=== PATIENT | male | born 1945 | race Caucasian/White ===

== ENCOUNTER 2016-12-20 20:46 | Emergency (ER) | payer MEDICARE, BC ==
--- NOTE | 2016-12-20 21:09 | EDM.PDOC ---
ED HPI GENERAL MEDICAL PROBLEM - General Chief Complaint: ENT Problem Stated Complaint: EPISTAXIS Time Seen by Provider: 12/20/16 21:04 Source of Information: Reports: Patient History Limitations: Reports: No Limitations - History of Present Illness INITIAL COMMENTS - FREE TEXT/NARRATIVE: This is a 71-year-old gentleman who returns one hour post discharge for continued left nare bleeding. States he bent over to pet cat and nose started to bleed again. Put light pressure and left packing in place, but still had some oozing. When patient presented to the ER this time bleeding had already resolved. Onset: Today Duration: Minutes: Severity: Mild Improves with: Reports: None Worsens with: Reports: None Associated Symptoms: Reports: No Other Symptoms - Related Data Allergies Allergy/AdvReac Type Severity Reaction Status Date / Time ezetimibe [From Zetia] Allergy Unknown Nausea and Verified 08/27/15 16:52 Vomiting diazepam [From Valium] Allergy Confusion Verified 08/27/15 16:52 Home Meds: Home Meds Ibuprofen [Motrin] 800 mg PO Q8H PRN 01/30/15 [History] predniSONE [Prednisone] 15 mg PO Q24H 08/27/15 [History] Levothyroxine 112 mcg PO ASDIRECTED@0700 tablet 08/29/15 [Rx] Calcium Carb & Citrate/Vit D3 [Calcium + D3 ER Tablet] 1 tab PO DAILY 12/20/16 [ History] Cholecalciferol (Vitamin D3) [Vitamin D] 1 tab PO DAILY 12/20/16 [History] Gabapentin [Neurontin] 300 mg PO DAILY PRN 12/20/16 [History] Liothyronine Sodium 5 mcg PO DAILY 12/20/16 [History] Past Medical History HEENT History: Reports: Hard of Hearing, Impaired Vision Gastrointestinal History: Reports: Chronic Diarrhea, GERD Musculoskeletal History: Reports: Arthritis, RA Other Musculoskeletal History: pmr Neurological History: Reports: Head Trauma Endocrine/Metabolic History: Reports: Hypothyroidism - Infectious Disease History Infectious Disease History: Reports: Chicken Pox, Measles, Mumps Other Infectious Disease History: [place] - Past Surgical History Respiratory Surgical History: Reports: Other (See Below) GI Surgical History: Reports: Cholecystectomy, Hernia, Inguinal, Juan Carlos Fundoplication Neurological Surgical History: Reports: C-Spine, Lumbar Spine Social & Family History - Family History HEENT: Reports: Cataract Other HEENT Family History: Father had cataracts. Cardiac: Reports: Other (See Below) Other Cardiac Family History: Aunts and uncles have heart problems. Oncologic: Reports: Other (See Below) Other Oncologic Family History: Grandfather had cancer (unknown) - Tobacco Use Smoking Status *Q: Former Smoker Years of Tobacco use: 11 Packs/Tins Daily: 1 Used Tobacco, but Quit: Yes Month Tobacco Last Used: June 1975 - Alcohol Use Number of Drinks Per Day: 1 - Recreational Drug Use Recreational Drug Use: No ED ROS ENT - Review of Systems Review Of Systems: ROS reveals no pertinent complaints other than HPI. Constitutional: Reports: No Symptoms HEENT: Reports: Nosebleed Respiratory: Reports: No Symptoms Cardiovascular: Reports: No Symptoms Endocrine: Reports: No Symptoms GI/Abdominal: Reports: No Symptoms : Reports: No Symptoms Musculoskeletal: Reports: No Symptoms Skin: Reports: No Symptoms Neurological: Reports: No Symptoms Psychiatric: Reports: No Symptoms Hematologic/Lymphatic: Reports: No Symptoms Immunologic: Reports: No Symptoms ED EXAM, ENT - Physical Exam Exam: See Below Exam Limited By: No Limitations General Appearance: Alert, WD/WN, No Apparent Distress Nose: Dried Blood. No: Active Bleeding Mouth/Throat: Normal Inspection, Normal Oropharynx Respiratory/Chest: No Respiratory Distress Neurological: Alert, Oriented, Normal Cognition Psychiatric: Normal Affect, Normal Mood Skin: Warm, Dry, Intact, Normal Color, No Rash Course - Re-Assessments/Exams Free Text/Narrative Re-Assessment/Exam: 12/20/16 21:07 Patient afebrile, nontoxic appearing. Vital signs stable. 4.5 anterior Rhino Rocket placed in the left nare. Balloon inflated and maintained. Patient tolerated procedure well. Will have patient follow-up at [facility] tomorrow. Departure - Departure Time of Disposition: 21:10 Disposition: Home, Self-Care 01 Condition: Good Clinical Impression: Epistaxis - Discharge Information Instructions: Nosebleed, [id number] Referrals: Gill Carranza MD [Primary Care Provider] - Additional Instructions: FOLLOW UP AT [facility] TOMORROW FOR RHINO REMOVAL - Assessment/Plan Assessment:: EPISTAXIS Plan: F/U AT [facility]
[2016-12-20 21:25] VITALS: BP 135/90
== END 2016-12-20 21:20 | disposition home or self-care (01) ==
LOC: KA.ED 20:46
DX: R04.0 Epistaxis (principal); E03.9 Hypothyroidism, unspecified; Z87.891 Personal history of nicotine dependence; Z79.899 Other long term (current) drug therapy; Z88.8 Allergy status to other drugs, medicaments and biological substances
CPT/HCPCS: 30901; 99283

== ENCOUNTER 2017-06-20 12:22 | Day surgery (SDC) | payer MEDICARE, BC ==
[2017-06-20] MEDS ORDERED: Sodium Chloride 0.9% 5 ML Syringe FLUSH PRN (12:45)
[2017-06-20] MEDS ORDERED: Gatifloxacin 0.5% Ophth Soln 2.5 ML Bot EYERT SCH (12:45)
[2017-06-20] MEDS ORDERED: Lactated Ringers 1,000 ML IV SCH (12:45)
[2017-06-20] MEDS: Phenylephrine 10% Ophth Soln 5 ML Bot EYERT SCH ×3 (12:53→13:24)
[2017-06-20] MEDS: Cyclopentolate 1% Opth Soln 2 ML Bottle EYERT SCH ×3 (13:03→13:37)
[2017-06-20] MEDS ORDERED: Ketorolac 30 MG/ML SDV ONE (13:44)
[2017-06-20] MEDS ORDERED: Ketorolac 30 MG/ML SDV IVPUSH ONE (14:15)
[2017-06-20] MEDS ORDERED: Balanced Salt Solution Ophth Irrig 15 ML Bottle EYERT ONE (14:35)
[2017-06-20] MEDS ORDERED: Balanced Salt Solution Plus Ophth Irrig 500 ML Bottle IOCULAR ONE (14:35)
[2017-06-20] MEDS ORDERED: Water For Irrigation,Sterile 1,500 ML Container IRR ONE (14:35)
[2017-06-20] MEDS ORDERED: EPINEPHrine 1 MG/ML SDV ONE (14:36)
[2017-06-20] MEDS ORDERED: Dexamethasone/Neomycin/Polymyxin B Ophth Oint 3.5 GM Tube EYERT ONE (14:36)
[2017-06-20] MEDS ORDERED: Carbachol 0.01% Intraocular 1.5 ML Vial EYERT ONE (14:36)
[2017-06-20] MEDS ORDERED: Lidocaine 2% with EPINEPHrine 1:100,000 20 ML MDV INJECT ONE (14:37)
[2017-06-20] MEDS ORDERED: Lidocaine 1% 10 ML MDV INJECT ONE (14:37)
[2017-06-20] MEDS ORDERED: Hyaluronate Sodium 1% 0.85 ML Syringe IOCULAR ONE (14:37)
[2017-06-20] MEDS ORDERED: Tetracaine HCl/PF 0.5% 4 ML Bottle EYEBOTH ONE (14:38)
[2017-06-20 14:50] VITALS: BP 144/86
--- NOTE | 2017-06-20 22:16 | OR ---
DATE OF SURGERY: 06/20/2017 SURGEON: Michael Klein MD PREOPERATIVE DIAGNOSIS: Cataract, right eye. POSTOPERATIVE DIAGNOSIS: Same. OPERATION PERFORMED: Phacoemulsification with posterior chamber lens insertion, right eye. HISTORY: The patient has noted an increasing amount of difficulty seeing at near, but also seeing at distance with his right eye. The vision for the right eye is 20/50. The right lens has a 2+ to 3+ nuclear sclerosis and a 3+ posterior subcapsular cataract. 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 FINDINGS: The patient was taken to the operating room where appropriate anesthesia, sedation and monitoring were provided. A retrobulbar block was given on the right side. The eye was massaged and was found to be appropriately soft. The eye and eyelids were then prepped and draped in the usual sterile manner. A lid speculum was placed. A micro sharp blade was used to enter the anterior chamber inside the limbus superior-temporally. Xylocaine was irrigated into the eye at this site. Healon was irrigated into the eye through this site. Then using a 2.85 mm corneal blade an entry was made into the anterior chamber just inside the limbus temporally. Healon was again irrigated into the eye. Then using a cystitome, the anterior capsulorrhexis was created. The lens nucleus was hydrodissected using a 27 gauge cannula and balanced salt solution. The phacoemulsification unit was introduced through the temporal site and the Fernando spatula through the superior temporal site. In so doing, the lens nucleus was phacoemulsified. The cortical fragments of the lens were removed using the irrigation aspiration unit. The posterior capsule was polished. Healon was irrigated into the eye. The posterior chamber lens was inserted and rotated into position inside the capsular bag. The Healon was irrigated out of the eye. Miostat was irrigated into the eye and the pupil rounded nicely. A single interrupted 10-0 Nylon suture was placed through the temporal corneal incision site. Balanced salt solution was irrigated into the eye. The wound was tested and found to be tight. Maxitrol ointment was placed into the patient's right eye. The eyelids were closed and an eye patch and lucas shield were placed. The patient left the operating room in good condition. /[id number]/MODL
== END 2017-06-20 15:19 | disposition home or self-care (01) ==
LOC: KA.SDS 12:22
PROVIDERS: ATTEND Ophthalmology
DX: H25.811 Combined forms of age-related cataract, right eye (principal); H90.5 Unspecified sensorineural hearing loss; K21.9 Gastro-esophageal reflux disease without esophagitis; E03.9 Hypothyroidism, unspecified; M19.90 Unspecified osteoarthritis, unspecified site; G62.9 Polyneuropathy, unspecified; E55.9 Vitamin D deficiency, unspecified; E78.00 Pure hypercholesterolemia, unspecified; M35.3 Polymyalgia rheumatica; Z79.899 Other long term (current) drug therapy; Z88.1 Allergy status to other antibiotic agents
CPT/HCPCS: A9270-GY; J0171; J1885; J7120

== ENCOUNTER 2019-09-14 13:06 | Emergency (ER) | payer MEDICARE, BC ==
[2019-09-14 13:13] VITALS: BP 162/100; PULSE 103
[2019-09-14] MEDS: Lidocaine 1% 20 ML MDV INJECT ONE (13:20)
[2019-09-14] MEDS: Bacitracin/Neomycin/Polymyxin B Oint 0.9 GM U/D Packet TOP ONE (13:28)
[2019-09-14] MEDS: Lidocaine 1% 20 ML MDV ONE (13:30)
--- NOTE | 2019-09-14 13:32 | EDM.PDOC ---
ED HPI GENERAL MEDICAL PROBLEM - General Chief Complaint: Upper Extremity Injury/Pain Stated Complaint: FISHHOOK TO RIGHT ARM Time Seen by Provider: 09/14/19 13:25 Source of Information: Reports: Patient History Limitations: Reports: No Limitations - History of Present Illness INITIAL COMMENTS - FREE TEXT/NARRATIVE: Patient is a 74-year-old gentleman who presents to emergency department this afternoon via private vehicle with a complaint of fishhook to right forearm. Patient states that he was fishing just prior to arrival and accidentally hooked right forearm. Denies any other injury. Onset: Sudden Onset Date: 09/14/19 Duration: Hour(s): Location: Reports: Upper Extremity, Right Severity: Mild Improves with: Reports: None Worsens with: Reports: None Context: Reports: Trauma ([place] to right forearm) Associated Symptoms: Reports: No Other Symptoms - Related Data Allergies Allergy/AdvReac Type Severity Reaction Status Date / Time ezetimibe [From Zetia] Allergy Unknown Nausea and Verified 09/14/19 13:13 Vomiting diazepam [From Valium] Allergy Confusion Verified 09/14/19 13:13 doxycycline Allergy Diarrhea Verified 09/14/19 13:13 Home Meds: Home Meds Ibuprofen [Motrin] 800 mg PO DAILY PRN 01/30/15 [History] predniSONE [Prednisone] 12 mg PO DAILY 08/27/15 [History] Calcium Carb, Citrate/Vit D3 [Calcium + D3 ER Tablet] 1 tab PO DAILY 12/20/16 [History] Levothyroxine [Synthroid] 88 mcg PO DAILY 09/14/19 [History] cephALEXin [Keflex] 500 mg PO TID #21 capsule 09/14/19 [Rx] sulfaSALAzine 500 mg PO BID 09/14/19 [History] Past Medical History HEENT History: Reports: Cataract, Hard of Hearing, Impaired Vision Respiratory History: Reports: Pneumothorax Gastrointestinal History: Reports: Chronic Diarrhea, GERD Musculoskeletal History: Reports: Arthritis, RA Other Musculoskeletal History: pmr Neurological History: Reports: Head Trauma Endocrine/Metabolic History: Reports: Hypothyroidism - Infectious Disease History Infectious Disease History: Reports: Chicken Pox, Measles Other Infectious Disease History: [place] - Past Surgical History Head Surgeries/Procedures: Reports: None GI Surgical History: Reports: Cholecystectomy, Hernia, Inguinal, Juan Carlos Fundoplication Neurological Surgical History: Reports: C-Spine, Lumbar Spine Social & Family History - Family History Family Medical History: Noncontributory HEENT: Reports: Cataract Other HEENT Family History: Father had cataracts. Cardiac: Reports: Other (See Below) Other Cardiac Family History: Aunts and uncles have heart problems. Oncologic: Reports: Other (See Below) Other Oncologic Family History: Grandfather had cancer (unknown) - Caffeine Use Caffeine Use: Reports: Coffee, Soda, Tea Review of Systems - Review of Systems Review Of Systems: Comprehensive ROS is negative, except as noted in HPI. Constitutional: Reports: No Symptoms Eyes: Reports: No Symptoms Ears: Reports: No Symptoms Nose: Reports: No Symptoms Mouth/Throat: Reports: No Symptoms Respiratory: Reports: No Symptoms Cardiovascular: Reports: No Symptoms GI/Abdominal: Reports: No Symptoms Genitourinary: Reports: No Symptoms Musculoskeletal: Reports: No Symptoms Skin: Reports: Other ([place] to right midforearm) Neurological: Reports: No Symptoms Psychiatric: Reports: No Symptoms ED EXAM, GENERAL - Physical Exam Exam: See Below Exam Limited By: No Limitations General Appearance: Alert, WD/WN, No Apparent Distress Throat/Mouth: Normal Inspection, Normal Oropharynx, No Airway Compromise Head: Atraumatic, Normocephalic Respiratory/Chest: No Respiratory Distress Extremities: Other ([place] to right midforearm) Neurological: Alert, Oriented, Normal Cognition Psychiatric: Normal Affect, Normal Mood Skin Exam: Warm, Dry, Normal Color, No Rash, Other (As above.-) ED TRAUMA EXTREMITY PROCEDURES - Foreign Body Removal Indication:: [place] embedded in right forearm Performing Doctor:: Rafael Patiño Anesthesia Type: Local Findings:: [place] removed with heme stats. No complications Complications:: No Course - Vital Signs Last Recorded V/S: Last Vital Signs Temp 97.5 F 09/14/19 13:08 Pulse 103 H 09/14/19 13:08 Resp 16 09/14/19 13:08 BP 162/100 H 09/14/19 13:08 Pulse Ox 94 L 09/14/19 13:08 - Orders/Labs/Meds Orders: Medication Orders Neomycin/Polymyxin/Bacitracin (Triple Antibiotic Oint) 1 each TOP ONETIME ONE Stop: 09/14/19 13:25 Meds: Medications Generic Name Dose Route Start Last Admin Trade Name Freq PRN Reason Stop Dose Admin Neomycin/Polymyxin/Bacitracin 1 each 09/14/19 13:24 Triple Antibiotic Oint TOP 09/14/19 13:25 ONETIME ONE Discontinued Medications Generic Name Dose Route Start Last Admin Trade Name Danitza PRN Reason Stop Dose Admin Lidocaine HCl Confirm 09/14/19 13:18 Xylocaine 1% Administered 09/14/19 13:19 Dose 20 ml .ROUTE .STK-MED ONE Lidocaine HCl 2 ml 09/14/19 13:24 Xylocaine 1% INJECT 09/14/19 13:25 ONETIME ONE - Re-Assessments/Exams Free Text/Narrative Re-Assessment/Exam: 09/14/19 13:29 Patient afebrile, vital signs stable, tolerated procedure well. Patient current with tetanus and given antibiotics Departure - Departure Time of Disposition: 13:30 Disposition: Home, Self-Care 01 Condition: Good Clinical Impression: [place] injury to finger Qualifiers: Encounter type: initial encounter Laterality: right Qualified Code(s): S69.91XA - Unspecified injury of right wrist, hand and finger(s), initial encounter - Discharge Information Instructions: Skin Foreign Body Referrals: Gill Carranza MD [Primary Care Provider] - Additional Instructions: Follow-up with PCP in 2-3 days for recheck. Return to emergency department sooner symptoms continue or worsen. Sepsis Event Note (ED) - Evaluation Sepsis Screening Result: No Definite Risk - Focused Exam Vital Signs: Vital Signs Temp Pulse Resp BP Pulse Ox 09/14/19 13:08 97.5 F 103 H 16 162/100 H 94 L - Assessment/Plan Assessment:: [place] removal Plan: Follow-up with PCP
[2019-09-14] MEDS: Cephalexin 250 MG Cap PO ONE (13:59)
== END 2019-09-14 13:40 | disposition home or self-care (01) ==
LOC: KA.ED 13:06
DX: S50.851A Superficial foreign body of right forearm, initial encounter (principal); E03.9 Hypothyroidism, unspecified; Z79.899 Other long term (current) drug therapy; Z88.8 Allergy status to other drugs, medicaments and biological substances; Z88.1 Allergy status to other antibiotic agents; W45.8XXA Other foreign body or object entering through skin, initial encounter
CPT/HCPCS: 99283; A9270; J2001

== ENCOUNTER 2021-12-11 09:21 | Emergency (ER) | payer MEDICARE, BC ==
[2021-12-11 10:07] VITALS: BP 161/94; PULSE 54
[2021-12-11 10:25] LABS: ANION GAP 5.7 mmol/L (5-15)
== END 2021-12-11 11:42 | disposition home or self-care (01) ==
LOC: KA.ED 09:21
DX: R10.13 Epigastric pain (principal); Z88.1 Allergy status to other antibiotic agents; Z88.8 Allergy status to other drugs, medicaments and biological substances; Z79.899 Other long term (current) drug therapy; Z90.49 Acquired absence of other specified parts of digestive tract
CPT/HCPCS: 36415; 80053; 81003; 85025; 99284

== ENCOUNTER 2022-05-13 16:21 | Inpatient (IN) | payer MEDICARE, BC ==
[2022-05-13] MEDS: Sodium Chloride 0.9% 1,000 ML IV SCH (17:18)
[2022-05-13] MEDS: Loperamide 2 MG Cap PO PRN ×2 (18:08→18:35)
[2022-05-13] MEDS ORDERED: Levothyroxine 100 MCG Tab PO SCH (18:45)
[2022-05-13] MEDS: Amitriptyline 25 MG Tab PO SCH ×2 (19:46→20:04)
[2022-05-13] MEDS: FLUoxetine 10 MG Cap PO SCH ×2 (19:47→20:04)
[2022-05-13] MEDS: Donepezil 10 MG Tab PO SCH ×2 (19:48→20:03)
[2022-05-13] MEDS: Metoprolol Succinate 25 MG Tab.ER PO SCH ×2 (19:49→20:04)
[2022-05-13] MEDS: Famotidine 20 MG Tab PO SCH ×2 (19:49→20:04)
[2022-05-13] MEDS: Baclofen 10 MG Tab PO PRN (23:32)
[2022-05-13] MEDS: Melatonin 3 MG Tab PO PRN (23:32)
[2022-05-14] MEDS: Loperamide 2 MG Cap PO PRN ×3 (00:08→10:36)
[2022-05-14] MEDS: Sodium Chloride 0.9% 1,000 ML IV SCH ×3 (01:38→22:30)
[2022-05-14 07:54] LABS: ANION GAP 13.3 mmol/L (5-15)
[2022-05-14] MEDS: Omeprazole 20 MG Cap.CR PO SCH (09:24)
[2022-05-14] MEDS: predniSONE 1 MG Tab PO SCH (09:24)
[2022-05-14] MEDS: Metoprolol Succinate 25 MG Tab.ER PO SCH ×2 (09:25→21:36)
[2022-05-14] MEDS ORDERED: Menthol/Zinc Oxide Ointment 113 GM Tube TOP PRN (10:19)
[2022-05-14] MEDS ORDERED: Atropine/Diphenoxylate 0.025-2.5 MG Tab PO PRN (10:49)
[2022-05-14] MEDS: Levothyroxine 88 MCG Tab PO SCH (10:55)
[2022-05-14] MEDS: AZATHIOPRINE 50 MG PO SCH (13:03)
[2022-05-14] MEDS: CHOLESTYRAMINE PO SCH ×2 (13:03→21:36)
[2022-05-14] MEDS ORDERED: Cholestyramine/Sucrose Powder 4 GM Packet PO ONE ×2 (13:03→21:36)
[2022-05-14] MEDS: Melatonin 3 MG Tab PO PRN (21:37)
[2022-05-14] MEDS: Famotidine 20 MG Tab PO SCH (21:37)
[2022-05-14] MEDS: Baclofen 10 MG Tab PO PRN (21:37)
[2022-05-14] MEDS: Amitriptyline 25 MG Tab PO SCH (21:37)
[2022-05-14] MEDS: FLUoxetine 10 MG Cap PO SCH (21:38)
[2022-05-14] MEDS: Donepezil 10 MG Tab PO SCH (21:38)
[2022-05-14] MEDS ORDERED: Ondansetron 4 MG Tab.DIS PO PRN (22:22)
[2022-05-15] MEDS: Baclofen 10 MG Tab PO PRN (06:05)
[2022-05-15 08:15] LABS: ANION GAP 13.4 mmol/L (5-15)
[2022-05-15] MEDS: CHOLESTYRAMINE PO SCH (08:51)
[2022-05-15] MEDS: predniSONE 1 MG Tab PO SCH (09:02)
[2022-05-15] MEDS: Omeprazole 20 MG Cap.CR PO SCH (09:03)
[2022-05-15] MEDS: Metoprolol Succinate 25 MG Tab.ER PO SCH (09:04)
[2022-05-15] MEDS: AZATHIOPRINE 50 MG PO SCH (09:04)
[2022-05-15] MEDS: Levothyroxine 88 MCG Tab PO SCH (09:06)
[2022-05-15 12:17] VITALS: BP 117/73; PULSE 86
== END 2022-05-15 12:25 | disposition home or self-care (01) | DRG 683 ==
LOC: KA.MS 16:21
PROVIDERS: ADMIT Nurse Practitioner Family; ATTEND Nurse Practitioner Family
DX: N17.9 Acute kidney failure, unspecified (principal); E87.1 Hypo-osmolality and hyponatremia; I47.1 Supraventricular tachycardia; E86.0 Dehydration; A08.4 Viral intestinal infection, unspecified; E03.9 Hypothyroidism, unspecified; M06.9 Rheumatoid arthritis, unspecified; K21.9 Gastro-esophageal reflux disease without esophagitis; G31.84 Mild cognitive impairment of uncertain or unknown etiology; F39 Unspecified mood [affective] disorder; F41.9 Anxiety disorder, unspecified; E78.00 Pure hypercholesterolemia, unspecified; J30.9 Allergic rhinitis, unspecified; I25.10 Atherosclerotic heart disease of native coronary artery without angina pectoris; Z20.822 Contact with and (suspected) exposure to COVID-19; M81.0 Age-related osteoporosis without current pathological fracture; D63.8 Anemia in other chronic diseases classified elsewhere; D50.9 Iron deficiency anemia, unspecified; M19.90 Unspecified osteoarthritis, unspecified site; Z98.1 Arthrodesis status; Z88.8 Allergy status to other drugs, medicaments and biological substances; Z91.041 Radiographic dye allergy status
CPT/HCPCS: 36415; 80048; 80053; 81001; 83605; 83735; 85025; 86140; A9270-GY; J7030; J7512

== ENCOUNTER 2024-10-07 09:19 | Emergency (ER) | payer MEDICARE ==
[2024-10-07 09:58] VITALS: BP 143/98; PULSE 100
[2024-10-07] MEDS: methylPREDNISolone Sodium Succinate 125 MG/2 ML SDV IVPUSH ONE (10:18)
[2024-10-07] MEDS: LORazepam 2 MG/ML SDV IVPUSH ONE (10:22)
== END 2024-10-07 11:18 | disposition home or self-care (01) ==
LOC: KA.ED 09:19
DX: M13.89 Other specified arthritis, multiple sites (principal); E78.00 Pure hypercholesterolemia, unspecified; K21.9 Gastro-esophageal reflux disease without esophagitis; E03.9 Hypothyroidism, unspecified; Z79.899 Other long term (current) drug therapy; Z79.890 Hormone replacement therapy; Z88.8 Allergy status to other drugs, medicaments and biological substances; Z88.1 Allergy status to other antibiotic agents
CPT/HCPCS: 96374; 96375; 99283; 99283-25; J2060; J2919

== ENCOUNTER 2024-12-01 16:00 | Inpatient (IN) | payer MEDICARE ==
[2024-12-01] MEDS ORDERED: Sodium Chloride 0.9% 10 ML Syringe FLUSH PRN (16:05)
[2024-12-01 16:13] LABS: BASOPHILS ABSOLUTE AUTO 0.01 10^3/uL (0.00-0.10); BASOPHILS PERCENT AUTO 0.1 % (0.0-1.0); EOSINOPHILS ABSOLUTE AUTO 0.05 10^3/uL (0.10-0.30); EOSINOPHILS PERCENT AUTO 0.4 % (1.0-3.0); IMMATURE GRAN ABSOLUTE AUTO 0.03 10^3/uL (0.00-0.04); IMMATURE GRAN PERCENT AUTO 0.2 % (0.0-0.4); LYMPHOCYTES ABSOLUTE AUTO 0.41 10^3/uL (1.00-4.00); LYMPHOCYTES PERCENT AUTO 3.2 % (20.0-40.0); MEAN PLATELET VOLUME 10.4 fL (7.4-10.4); MONOCYTES ABSOLUTE AUTO 1.02 10^3/uL (0.10-0.80); MONOCYTES PERCENT AUTO 8.0 % (2.0-8.0); NEUTROPHILS ABSOLUTE AUTO 11.19 10^3/uL (2.50-7.00); NEUTROPHILS PERCENT AUTO 88.1 % (50.0-70.0); PLATELET COUNT,PLT 352 10^3/uL (150-400); RED BLOOD CELL COUNT 4.26 10^6/uL (4.50-6.00); RED CELL DISTRIBUTION WIDTH 18.1 % (11.5-14.5); WHITE BLOOD CELL COUNT,WBC 12.71 10^3/uL (5.00-10.00)
[2024-12-01 16:36] LABS: B-TYPE NATRIURETIC PEPTIDE,BNP 178 pg/mL (0-100)
[2024-12-01 16:59] LABS: APPEARANCE,URINE CLEAR (CLEAR); GLUCOSE,URINE NEGATIVE (NEGATIVE); OCCULT BLOOD,URINE MODERATE (NEGATIVE)
[2024-12-01 17:00] LABS: LACTIC ACID 1.1 mmol/L (0.4-2.0)
[2024-12-01 17:08] LABS: AMPHETAMINES SCREEN, URINE NEGATIVE (NEGATIVE); COCAINE METABOLITES,URINE NEGATIVE (NEGATIVE); METHADONE SCREEN, URINE NEGATIVE (NEGATIVE); METHAMPHETAMINES SCREEN, URINE NEGATIVE (NEGATIVE); OXYCODONE SCREEN,URINE NEGATIVE (NEGATIVE); PCP SCREEN,URINE NEGATIVE (NEGATIVE); SQUAMOUS EPITHELIAL CELLS,UR FEW /HPF (NOT SEEN); TCA SCREEN,URINE NEGATIVE (NEGATIVE); THC SCREEN,URINE 50 NG/ML NEGATIVE (NEGATIVE)
[2024-12-01 17:09] LABS: ALANINE AMINOTRANSFERASE,ALT 42 U/L (14-63); ASPARTATE AMNIOTRANSFERASE,AST 91 U/L (15-37); BILIRUBIN TOTAL 0.8 mg/dL (0.2-1.0); CARBON DIOXIDE,CO2 21.4 mmol/L (21.0-32.0); CREATININE 2.50 mg/dL (0.51-1.17); GLUCOSE RANDOM 105 mg/dL (70-140); PROTEIN TOTAL,TP 7.7 g/dL (6.4-8.2)
[2024-12-01 17:18] LABS: CHLORIDE,CL 106 mmol/L (98-107); POTASSIUM,K 5.3 mmol/L (3.5-5.1); SODIUM,NA 144 mmol/L (136-145)
[2024-12-01 17:42] LABS: BLOOD UREA NITROGEN,BUN 86 mg/dL (7-18); ESTIMATED GFR 25 mL/min (>=60)
[2024-12-01 17:43] LABS: CREATINE KINASE,CK 2039 U/L (26-276); ETHANOL BLOOD MEDICAL < 3 mg/dL (<3)
[2024-12-01] MEDS ORDERED: Ondansetron 4 MG/2 ML SDV IV PRN (21:53)
[2024-12-01] MEDS ORDERED: Lactated Ringers 1,000 ML IV SCH (22:00)
[2024-12-01] MEDS: Heparin Sodium 5,000 Units/ML Vial SUBCUT SCH (22:33)
[2024-12-02 07:26] LABS: BASOPHILS ABSOLUTE AUTO 0.01 10^3/uL (0.00-0.10); BASOPHILS PERCENT AUTO 0.1 % (0.0-1.0); EOSINOPHILS ABSOLUTE AUTO 0.22 10^3/uL (0.10-0.30); EOSINOPHILS PERCENT AUTO 2.4 % (1.0-3.0); IMMATURE GRAN ABSOLUTE AUTO 0.01 10^3/uL (0.00-0.04); IMMATURE GRAN PERCENT AUTO 0.1 % (0.0-0.4); LYMPHOCYTES ABSOLUTE AUTO 0.53 10^3/uL (1.00-4.00); LYMPHOCYTES PERCENT AUTO 5.9 % (20.0-40.0); MEAN PLATELET VOLUME 10.1 fL (7.4-10.4); MONOCYTES ABSOLUTE AUTO 0.81 10^3/uL (0.10-0.80); MONOCYTES PERCENT AUTO 9.0 % (2.0-8.0); NEUTROPHILS ABSOLUTE AUTO 7.40 10^3/uL (2.50-7.00); NEUTROPHILS PERCENT AUTO 82.5 % (50.0-70.0); PLATELET COUNT,PLT 298 10^3/uL (150-400); RED BLOOD CELL COUNT 3.88 10^6/uL (4.50-6.00); RED CELL DISTRIBUTION WIDTH 18.3 % (11.5-14.5); WHITE BLOOD CELL COUNT,WBC 8.98 10^3/uL (5.00-10.00)
[2024-12-02 07:58] LABS: CARBON DIOXIDE,CO2 18.1 mmol/L (21.0-32.0); CHLORIDE,CL 118.0 mmol/L (98-107); CREATININE 1.65 mg/dL (0.51-1.17); EST CRCL DRUG DOSING (CG) 30.2 mL/min; GLUCOSE RANDOM 91.0 mg/dL (70-140); POTASSIUM,K 4.6 mmol/L (3.5-5.1); SODIUM,NA 152.0 mmol/L (136-145)
[2024-12-02 07:59] LABS: BLOOD UREA NITROGEN,BUN 66.0 mg/dL (7-18); ESTIMATED GFR 42.0 mL/min (>=60)
[2024-12-03] MEDS: Omeprazole 20 MG Cap.CR PO SCH (06:38)
[2024-12-03 08:00] LABS: BASOPHILS ABSOLUTE AUTO 0.01 10^3/uL (0.00-0.10); BASOPHILS PERCENT AUTO 0.1 % (0.0-1.0); EOSINOPHILS ABSOLUTE AUTO 0.11 10^3/uL (0.10-0.30); EOSINOPHILS PERCENT AUTO 1.2 % (1.0-3.0); IMMATURE GRAN ABSOLUTE AUTO 0.02 10^3/uL (0.00-0.04); IMMATURE GRAN PERCENT AUTO 0.2 % (0.0-0.4); LYMPHOCYTES ABSOLUTE AUTO 0.58 10^3/uL (1.00-4.00); LYMPHOCYTES PERCENT AUTO 6.2 % (20.0-40.0); MEAN PLATELET VOLUME 10.4 fL (7.4-10.4); MONOCYTES ABSOLUTE AUTO 0.71 10^3/uL (0.10-0.80); MONOCYTES PERCENT AUTO 7.6 % (2.0-8.0); NEUTROPHILS ABSOLUTE AUTO 7.95 10^3/uL (2.50-7.00); NEUTROPHILS PERCENT AUTO 84.7 % (50.0-70.0); PLATELET COUNT,PLT 236 10^3/uL (150-400); RED BLOOD CELL COUNT 3.69 10^6/uL (4.50-6.00); RED CELL DISTRIBUTION WIDTH 18.7 % (11.5-14.5); WHITE BLOOD CELL COUNT,WBC 9.38 10^3/uL (5.00-10.00)
[2024-12-03 08:15] LABS: ALANINE AMINOTRANSFERASE,ALT 38.0 U/L (14-63); ASPARTATE AMNIOTRANSFERASE,AST 46.0 U/L (15-37); BILIRUBIN TOTAL 0.5 mg/dL (0.2-1.0); BLOOD UREA NITROGEN,BUN 37.0 mg/dL (7-18); CARBON DIOXIDE,CO2 23.9 mmol/L (21.0-32.0); CHLORIDE,CL 116.0 mmol/L (98-107); CREATININE 1.17 mg/dL (0.51-1.17); EST CRCL DRUG DOSING (CG) 44.16 mL/min; GLUCOSE RANDOM 107.0 mg/dL (70-140); POTASSIUM,K 4.5 mmol/L (3.5-5.1); PROTEIN TOTAL,TP 6.1 g/dL (6.4-8.2); SODIUM,NA 150.0 mmol/L (136-145)
[2024-12-03 08:21] LABS: ESTIMATED GFR 63.0 mL/min (>=60)
[2024-12-03 08:22] LABS: CREATINE KINASE,CK 650.0 U/L (26-276)
[2024-12-03] MEDS: Acetaminophen/HYDROcodone 325-5 MG Tab PO ONE (09:49)
[2024-12-04 07:10] LABS: BASOPHILS ABSOLUTE AUTO 0.01 10^3/uL (0.00-0.10); BASOPHILS PERCENT AUTO 0.1 % (0.0-1.0); EOSINOPHILS ABSOLUTE AUTO 0.16 10^3/uL (0.10-0.30); EOSINOPHILS PERCENT AUTO 2.3 % (1.0-3.0); IMMATURE GRAN ABSOLUTE AUTO 0.02 10^3/uL (0.00-0.04); IMMATURE GRAN PERCENT AUTO 0.3 % (0.0-0.4); LYMPHOCYTES ABSOLUTE AUTO 0.89 10^3/uL (1.00-4.00); LYMPHOCYTES PERCENT AUTO 12.6 % (20.0-40.0); MEAN PLATELET VOLUME 10.2 fL (7.4-10.4); MONOCYTES ABSOLUTE AUTO 0.57 10^3/uL (0.10-0.80); MONOCYTES PERCENT AUTO 8.1 % (2.0-8.0); NEUTROPHILS ABSOLUTE AUTO 5.41 10^3/uL (2.50-7.00); NEUTROPHILS PERCENT AUTO 76.6 % (50.0-70.0); PLATELET COUNT,PLT 272 10^3/uL (150-400); RED BLOOD CELL COUNT 3.55 10^6/uL (4.50-6.00); RED CELL DISTRIBUTION WIDTH 18.5 % (11.5-14.5); WHITE BLOOD CELL COUNT,WBC 7.06 10^3/uL (5.00-10.00)
[2024-12-04 07:30] LABS: ALANINE AMINOTRANSFERASE,ALT 40.0 U/L (14-63); ASPARTATE AMNIOTRANSFERASE,AST 52.0 U/L (15-37); BILIRUBIN TOTAL 0.4 mg/dL (0.2-1.0); BLOOD UREA NITROGEN,BUN 25.0 mg/dL (7-18); CARBON DIOXIDE,CO2 23.8 mmol/L (21.0-32.0); CHLORIDE,CL 113.0 mmol/L (98-107); CREATININE 1.12 mg/dL (0.51-1.17); EST CRCL DRUG DOSING (CG) 46.13 mL/min; GLUCOSE RANDOM 95.0 mg/dL (70-140); POTASSIUM,K 4.1 mmol/L (3.5-5.1); PROTEIN TOTAL,TP 5.7 g/dL (6.4-8.2); SODIUM,NA 146.0 mmol/L (136-145)
[2024-12-04 07:32] LABS: ESTIMATED GFR 66.0 mL/min (>=60)
[2024-12-04 07:33] LABS: CREATINE KINASE,CK 300.0 U/L (26-276)
[2024-12-04] MEDS: Acetaminophen/HYDROcodone 325-5 MG Tab PO PRN (10:34)
[2024-12-04] MEDS: Atropine/Diphenoxylate 0.025-2.5 MG Tab PO PRN (10:34)
[2024-12-04] MEDS: LORazepam 2 MG/ML SDV IVPUSH ONE (21:26)
[2024-12-05 07:27] LABS: BASOPHILS ABSOLUTE AUTO 0.02 10^3/uL (0.00-0.10); BASOPHILS PERCENT AUTO 0.3 % (0.0-1.0); EOSINOPHILS ABSOLUTE AUTO 0.12 10^3/uL (0.10-0.30); EOSINOPHILS PERCENT AUTO 1.7 % (1.0-3.0); IMMATURE GRAN ABSOLUTE AUTO 0.02 10^3/uL (0.00-0.04); IMMATURE GRAN PERCENT AUTO 0.3 % (0.0-0.4); LYMPHOCYTES ABSOLUTE AUTO 0.92 10^3/uL (1.00-4.00); LYMPHOCYTES PERCENT AUTO 12.7 % (20.0-40.0); MEAN PLATELET VOLUME 11.1 fL (7.4-10.4); MONOCYTES ABSOLUTE AUTO 0.32 10^3/uL (0.10-0.80); MONOCYTES PERCENT AUTO 4.4 % (2.0-8.0); NEUTROPHILS ABSOLUTE AUTO 5.82 10^3/uL (2.50-7.00); NEUTROPHILS PERCENT AUTO 80.6 % (50.0-70.0); PLATELET COUNT,PLT 279 10^3/uL (150-400); RED BLOOD CELL COUNT 3.65 10^6/uL (4.50-6.00); RED CELL DISTRIBUTION WIDTH 18.9 % (11.5-14.5); WHITE BLOOD CELL COUNT,WBC 7.22 10^3/uL (5.00-10.00)
[2024-12-05 07:44] LABS: BILIRUBIN TOTAL 0.4 mg/dL (0.2-1.0); CARBON DIOXIDE,CO2 27.5 mmol/L (21.0-32.0)
[2024-12-05 08:49] LABS: ALANINE AMINOTRANSFERASE,ALT 89.0 U/L (14-63); ASPARTATE AMNIOTRANSFERASE,AST 165.0 U/L (15-37); BLOOD UREA NITROGEN,BUN 29.0 mg/dL (7-18); CHLORIDE,CL 110.0 mmol/L (98-107); CREATININE 1.19 mg/dL (0.51-1.17); EST CRCL DRUG DOSING (CG) 43.42 mL/min; GLUCOSE RANDOM 88.0 mg/dL (70-140); POTASSIUM,K 4.5 mmol/L (3.5-5.1); PROTEIN TOTAL,TP 6.4 g/dL (6.4-8.2); SODIUM,NA 144.0 mmol/L (136-145)
[2024-12-05 08:54] LABS: ESTIMATED GFR 62.0 mL/min (>=60)
[2024-12-05] MEDS: LORazepam 2 MG/ML SDV IVPUSH PRN (13:12)
[2024-12-05] MEDS: LORazepam 2 MG/ML SDV ONE (13:16)
[2024-12-07] MEDS: LORazepam 2 MG/ML SDV IVPUSH PRN (15:42)
[2024-12-09 07:44] LABS: BLOOD UREA NITROGEN,BUN 21.0 mg/dL (7-18); CARBON DIOXIDE,CO2 27.8 mmol/L (21.0-32.0); CHLORIDE,CL 107.0 mmol/L (98-107); CREATININE 1.15 mg/dL (0.51-1.17); EST CRCL DRUG DOSING (CG) 44.78 mL/min; GLUCOSE RANDOM 91.0 mg/dL (70-140); POTASSIUM,K 4.0 mmol/L (3.5-5.1); SODIUM,NA 141.0 mmol/L (136-145)
[2024-12-09 07:45] LABS: ESTIMATED GFR 64.0 mL/min (>=60)
[2024-12-10] MEDS: LORazepam 2 MG/ML SDV IVPUSH ONE (18:05)
[2024-12-11 12:48] VITALS: BP 103/77; PULSE 83
== END 2024-12-11 11:33 | DRG 564 ==
LOC: KA.ED 16:00 → KA.MS 20:14
PROVIDERS: ADMIT Internal Medicine; ATTEND Internal Medicine
DX: S72.91XA Unspecified fracture of right femur, initial encounter for closed fracture (principal); F03.90 Unspecified dementia, unspecified severity, without behavioral disturbance, psychotic disturbance, mood disturbance, and anxiety; T79.6XXA Traumatic ischemia of muscle, initial encounter; M62.82 Rhabdomyolysis; G93.41 Metabolic encephalopathy; N17.9 Acute kidney failure, unspecified; Z88.8 Allergy status to other drugs, medicaments and biological substances; E87.0 Hyperosmolality and hypernatremia; F05 Delirium due to known physiological condition; J93.9 Pneumothorax, unspecified; E87.1 Hypo-osmolality and hyponatremia; F02.811 Dementia in other diseases classified elsewhere, unspecified severity, with agitation; F02.C4 Dementia in other diseases classified elsewhere, severe, with anxiety; E86.0 Dehydration; E61.1 Iron deficiency; R13.10 Dysphagia, unspecified; N13.9 Obstructive and reflux uropathy, unspecified; H54.7 Unspecified visual loss; M54.9 Dorsalgia, unspecified; L89.90 Pressure ulcer of unspecified site, unspecified stage; E78.00 Pure hypercholesterolemia, unspecified; K21.9 Gastro-esophageal reflux disease without esophagitis; E87.5 Hyperkalemia; M06.9 Rheumatoid arthritis, unspecified; G62.9 Polyneuropathy, unspecified; E03.9 Hypothyroidism, unspecified; M81.0 Age-related osteoporosis without current pathological fracture; M54.81 Occipital neuralgia; S31.000A Unspecified open wound of lower back and pelvis without penetration into retroperitoneum, initial encounter; G30.1 Alzheimer's disease with late onset; Z90.49 Acquired absence of other specified parts of digestive tract; Z93.0 Tracheostomy status; Z85.038 Personal history of other malignant neoplasm of large intestine; Z79.890 Hormone replacement therapy; Z80.9 Family history of malignant neoplasm, unspecified; Z98.49 Cataract extraction status, unspecified eye; Z90.89 Acquired absence of other organs; Z79.899 Other long term (current) drug therapy; W19.XXXA Unspecified fall, initial encounter; Y92.009 Unspecified place in unspecified non-institutional (private) residence as the place of occurrence of the external cause
CPT/HCPCS: 36415; 71045; 72170; 80053; 80305; 80307; 81001; 82550; 83605; 83880; 84484; 85025; 86140; 93010; 96360; 96361; 99284; 99285; J7030 ×2; 51702; 70450; 73020-RT; 80048; 92526-GN; 92610-GN; 93005; 97116-GP; 97161-GP; 97166-GO; 97535-GO; 99223-GT; 99232-GT; 99233-GT; 99239-GT; A6212; A9270-GY; J1630; J1644; J2060; J2270; J7070; J7512; J8610; Q3014